=== PATIENT | male | born 1970 | race Caucasian/White ===

== ENCOUNTER 2020-02-15 07:17 | Emergency (ER) | payer MEDICAID ==
[~2020-02-15] VITALS: Ht 172.7 cm; Wt 97.5 kg
[2020-02-15 07:28] VITALS: BP_SYST 141
[2020-02-15] MEDS ORDERED: PANTOPRAZOLE SODIUM 40 MG/VIAL (PROTONIX) IVP ONE (08:15)
[2020-02-15] MEDS ORDERED: NACL 0.9% 1,000 ML IV ONE (08:15)
[2020-02-15] MEDS ORDERED: KETOROLAC TROMETHAMINE 30 MG VIAL IVP ONE (08:15)
[2020-02-15 12:20] VITALS: BP_SYST 141
== END 2020-02-15 12:20 | disposition home or self-care (01) ==
LOC: SED 07:17
DX: K29.20 Alcoholic gastritis without bleeding (principal); F10.10 Alcohol abuse, uncomplicated; M54.41 Lumbago with sciatica, right side; Y90.9 Presence of alcohol in blood, level not specified; K21.9 Gastro-esophageal reflux disease without esophagitis
CPT/HCPCS: 96361; 96374; 96375; 99284; C9113; J1885; J7030